=== PATIENT | female | born 1955 | race Caucasian/White ===

== ENCOUNTER 2022-07-18 11:38 | Outpatient (CLI) | payer MEDICARE | END 2022-07-18 11:39 | disposition home or self-care (01) | LOC: CSHMAMMO 11:38 | PROVIDERS: ATTEND Family Medicine Sports Medicine | DX: Z12.31 Encounter for screening mammogram for malignant neoplasm of breast (principal) | CPT/HCPCS: 77063; 77067 ==

== ENCOUNTER 2023-12-27 15:57 | Outpatient (CLI) | payer MEDICARE, OTHER | END 2023-12-27 15:58 | disposition home or self-care (01) | LOC: CSHRAD 15:57 | PROVIDERS: ATTEND Family Medicine Sports Medicine | DX: M54.40 Lumbago with sciatica, unspecified side (principal); M25.551 Pain in right hip; M25.552 Pain in left hip; M47.816 Spondylosis without myelopathy or radiculopathy, lumbar region; M41.86 Other forms of scoliosis, lumbar region; M16.12 Unilateral primary osteoarthritis, left hip | CPT/HCPCS: 72100 ==

== ENCOUNTER 2024-05-29 12:42 | Outpatient (CLI) | payer MEDICARE, OTHER | END 2024-05-29 12:43 | disposition home or self-care (01) | LOC: CSHRAD 12:42 | PROVIDERS: ATTEND Family Medicine Sports Medicine | DX: M79.89 Other specified soft tissue disorders (principal) ==

== ENCOUNTER 2024-07-26 08:50 | Emergency (ER) | payer MEDICARE, OTHER ==
[2024-07-26] MEDS ORDERED: Ketorolac Tromethamine 30 MG (1 mL) VIAL ONE (09:33)
[2024-07-26 09:50] LABS: #Basophils 0.07 10x3/uL (0.0-0.2); #Eosinphils 0.02 10x3/uL (0.0-0.5); #Monocytes 0.71 10x3/uL (0.0-1.1); #Neutrophils 9.05 10x3/uL (1.5-8.4); %Basophils 0.6 % (0.0-2.0); %Eosinophils 0.2 % (0.0-6.0); %Lymphocytes 15.1 % (18.0-47.0); %Monocytes 6.1 % (0.0-10.0); %Neutrophils 77.4 % (40.0-75.0); Hematocrit 41.1 % (34.9-44.5); Hemoglobin 13.5 g/dL (12.0-15.5); Mean Corpuscular HGB CONC 32.8 g/dL (32.0-36.0); Mean Corpuscular Hemoglobin 28.5 pg (27.0-33.0); Mean Corpuscular Volume 86.7 fL (81.6-98.3); Mean Platelet Volume 9.9 fL (7.4-10.4); Platelet Count 389 10x3/uL (150-450); RBC Distribution Width 12.5 % (11.5-14.5); Red Blood Cell (RBC) Count 4.74 10x6/uL (3.90-5.03); White Blood Cell (WBC) Count 11.7 10x3/uL (3.5-10.5)
[2024-07-26 10:02] LABS: Anion Gap 15 mmol/L (10-20); BUN (Urea Nitrogen) 11 mg/dL (9.8-20.1); Calc. Creatinine Clearance 0 mL/min (70-130); Calcium 9.5 mg/dL (7.8-10.44); Carbon Dioxide 19 mmol/L (23-31); Chloride 104 mmol/L (98-107); Estimated GFR 67; Glucose 109 mg/dL (83-110); Potassium 4.4 mmol/L (3.5-5.1); Sodium 134 mmol/L (136-145)
[2024-07-26] MEDS ORDERED: metroNIDAZOLE 500 MG (100 mL) BAG ONE (10:10)
[2024-07-26] MEDS ORDERED: cefTRIAXone (ROCEPHIN) 1 GM VIAL ONE (10:10)
[2024-07-26] MEDS ORDERED: Rabies Immune Globulin/PF 300 UNITS/ML VIAL IM SCH (12:45)
[2024-07-26] MEDS ORDERED: Rabies Vaccine Human 2.5 UNITS VIAL IM ONE (12:45)
[2024-07-26] MEDS ORDERED: Boostrix 0.5 ML (Tdap) VIAL (>/=7 yrs of age) ONE (13:10)
== END 2024-07-26 16:30 | disposition left against medical advice (07) ==
LOC: CSHERS 08:50
DX: S61.452A Open bite of left hand, initial encounter (principal); L03.114 Cellulitis of left upper limb; W55.01XA Bitten by cat, initial encounter
CPT/HCPCS: 80048; 83605; 84145; 85025; 87040; 93005; J0696; J1885; 36415; 90375; 90675; 90715; 96374; 96375